=== PATIENT | female | born 2000 | race Caucasian/White ===

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

== ENCOUNTER 2022-04-28 18:55 | Emergency (ER) | payer MEDICAID, SELFPAY ==
[2022-04-28 18:57] VITALS: BP 97/62; PULSE 97; RESP 16; TEMP 37; O2SAT 96; BMI 19.1
[2022-04-28 19:00] VITALS: BP 101/63
--- NOTE | 2022-04-28 19:00 | XR_ITS ---
PROCEDURE INFORMATION: Exam: XR Right Mandible Exam date and time: 04/28/2022 7:30 PM Age: 21 years old Clinical indication: Other: Mandible; Patient HX: Right upper tooth pain with swelling. R/O abcess. ; Additional info: Right upper pain TECHNIQUE: Imaging protocol: XR of the Right mandible. Views: 4 or more views COMPARISON: HDWO CT HEAD W/O CONTRAST 07/24/2016 11:42 PM FINDINGS: Sinuses: No air-fluid levels. Bones/joints: No evidence of acute osseous abnormality. Soft tissues: Unremarkable. IMPRESSION: No acute findings. No evidence of odontogenic abscess within the limits of this exam.
--- NOTE | 2022-04-28 19:00 | [facility].EDGENADL ---
Discharge Plan Disposition Patient Disposition: Home, Self-Care Condition: Fair Chief Complaint: Allergic Reaction Prescriptions Prescriptions: No Action sertraline [Zoloft] 100 MG tablet 150 mg PO DAILY clonazepam [Klonopin] 1 MG tablet 1 mg PO NEEDED MDD up to 5 times PRN (Reason: Seizures) topiramate 50 MG tablet 200 mg PO BID dexmethylphenidate [Focalin XR] 20 MG capsule,ER biphasic 50-50 20 mg PO DAILY quetiapine 50 MG tablet 50 mg PO DAILY clobazam [Onfi] 20 MG tablet 20 mg PO HS midazolam (PF) 1 MG/ML solution 1 mg IN NEEDED PRN (Reason: Seizures) clonazepam 1 mg Tablet 1 mg PO BID ciprofloxacin HCl 100 mg Tablet 300 mg PO TID cenobamate 100 mg Tablet 100 mg PO DAILY Rx Instructions: administer weeks 7 and 8 of therapy Referrals Follow up/Referrals: Zach Christianson MD [Primary Care Provider] - See instructions Activity Restrictions/Add. Instructions Additional Instructions/Restrictions: You have been evaluated for dental pain, abscess. Please continue taking clindamycin as prescribed. It is okay to take Tylenol or Motrin tonight for pain. Please follow-up with your dentist tomorrow for dental extraction or other intervention. Return to the emergency department at once for any new or worsening symptoms, pain, fever, headache, eye pain, other concerns. Clinical Impressions Clinical Impression: Abscess, dental, Dental caries Discharge ED Provider: Pallavi Sapp Adult HPI General Chief complaint: Allergic Reaction Stated complaint: Face swelling Time Seen by Provider: 04/28/22 19:06 Mode of Arrival: Wheelchair Source of Information: Patient and Parent(s) Limitations: No Limitations History of Present Illness HPI narrative: 21-year-old female presenting to the emergency department with facial pain and swelling. Symptoms started on Friday, 2 days ago. She was eating when she complained to her mother of pain in her teeth, located in the right upper side. She has some dental decay and lost teeth. They spoke with her dentist who prescribed clindamycin. She has taken 3 doses yesterday and 2 doses today. The swelling seems to be getting worse. Now she has swelling on the lower eyelid. Is able to open her eye, no pain with eye motion. No medications yet today for pain. No fevers, chills, nausea, vomiting. Related Data Home Medications Medication Instructions Recorded Confirmed clobazam 20 mg tablet (Onfi) 20 mg PO HS Anxiety 10/12/17 04/28/22 clonazepam 1 mg tablet (Klonopin) 1 mg PO NEEDED PRN Seizures 10/12/17 04/28/22 dexmethylphenidate 20 mg 20 mg PO DAILY anxiety 10/12/17 04/28/22 capsule,extended release [id number] (Focalin XR) midazolam (PF) 1 mg/mL injection 1 mg IN NEEDED PRN Seizures 10/12/17 04/28/22 solution quetiapine 50 mg tablet 50 mg PO DAILY Anxiety 10/12/17 04/28/22 sertraline 100 mg tablet (Zoloft) 150 mg PO DAILY Anxiety 10/12/17 04/28/22 topiramate 50 mg tablet 200 mg PO BID Seizures 10/12/17 04/28/22 cenobamate 100 mg tablet 100 mg PO DAILY seizures 04/28/22 04/28/22 ciprofloxacin HCl 100 mg tablet 300 mg PO TID Tooth abcess 04/28/22 04/28/22 clonazepam 1 mg tablet 1 mg PO BID Seizures 04/28/22 04/28/22 Allergies Allergy/AdvReac Type Severity Reaction Status Date / Time Sulfa (Sulfonamide Allergy Unknown Verified 05/10/21 06:23 Antibiotics) [SULFA (SULFONAMIDE ANTIBIOTICS)] cyproheptadine AdvReac Intermediate Verified 05/10/21 06:23 [From Periactin] primidone AdvReac Verified 05/10/21 06:23 PFSH PFSH Medical History (Updated 04/28/22 @ 20:01 by Pallavi Sapp DO) ADHD Alien limb phenomenon Aortic stenosis Autism Blind left eye Epilepsy Gastrointestinal tube present History of corpus callostomy Thierry-Gastaut syndrome OCD (obsessive compulsive disorder) Surgical History (Updated 04/28/22 @ 19:16 by Kash Cesar RN) Hi
--- NOTE | 2022-04-28 19:27 | PC.NURSE ---
PT IN RADIOLOGY
[2022-04-28 19:48] VITALS: BP 102/74
[2022-04-28 19:56] VITALS: BP 102/74; PULSE 90; PULSE 91; RESP 16; TEMP 36.9; O2SAT 95; O2SAT 98
[2022-04-28 20:00] VITALS: BP 98/63; PULSE 91; O2SAT 97
== END 2022-04-28 20:32 | disposition home or self-care (01) ==
PROVIDERS: Emergency Provider Emergency Medicine; PCP Family Medicine
DX: K04.7 Periapical abscess without sinus (principal); K02.9 Dental caries, unspecified; Z79.899 Other long term (current) drug therapy; Z88.2 Allergy status to sulfonamides; Z88.8 Allergy status to other drugs, medicaments and biological substances
CPT/HCPCS: 40800; 70110; 99283

== ENCOUNTER 2025-05-31 13:26 | Outpatient (CLI) | payer MEDICAID, SELFPAY ==
[2025-05-31 14:45] LABS: Activated Partial Thrombo Time 24.1 seconds (22.8-30.6); Hematocrit 43.9 % (37.0-47.0); Hemoglobin 13.2 g/dL (12.2-16.2); INR 1.03 (0.9-1.1); Immature Granulocytes % 0 %; Mean Corpuscular HGB Conc 30.1 g/dL (31.8-35.4); Mean Corpuscular Hemoglobin 26.3 pg (27.0-31.2); Mean Corpuscular Volume 87.5 fl (81-99); Nucleated Red Blood Cells % 0 %; Platelet Count 191 K/mm3 (142-424); Prothrombin Time 11.4 seconds (10.1-12.5); Red Blood Count 5.02 M/mm3 (4.20-5.40); Red Cell Distribution Width-SD 42.7 fL; White Blood Count 4.1 K/mm3 (4.8-10.8)
[2025-05-31 14:53] LABS: Anion Gap 11.9 mEq/L (5-15); Blood Urea Nitrogen 11 mg/dl (7-17); Calcium 9.2 mg/dl (8.4-10.2); Carbon Dioxide 25 mmol/L (22.0-30.0); Chloride 107 mmol/L (98-107); Creatinine,Serum 0.90 mg/dl (0.52-1.04); Estimated Glomerular Filt Rate 78 ml/min (>60); GFR (African American) 95 ML/MIN (>60); Glucose 96 mg/dl (74-100); Potassium 4.9 mmoL/L (3.5-5.1); Sodium 139 mmol/L (136-145)
== END 2025-05-31 23:59 | disposition home or self-care (01) ==
LOC: LAB 13:27
PROVIDERS: PCP Family Medicine; Visit Provider Pediatrics
DX: G40.319 Generalized idiopathic epilepsy and epileptic syndromes, intractable, without status epilepticus (principal); Z96.89 Presence of other specified functional implants
CPT/HCPCS: 36415; 80048; 85025; 85610; 85730; 87070; 87081; 87205